=== PATIENT | male | born 1950 | race Caucasian/White ===

== ENCOUNTER → 2019-01-26 08:27 | Outpatient (CLI) | payer MEDICARE, OTHER, SELFPAY ==
[2019-01-26 09:50] LABS: Influenza A and B by PCR Rapid Negative (Negative)
== END ==
PROVIDERS: PCP Physician Assistant; Visit Provider Physician Assistant
DX: R68.89 Other general symptoms and signs (principal)
CPT/HCPCS: 87400

== ENCOUNTER → 2019-12-16 08:53 | Outpatient (CLI) | payer MEDICARE, OTHER, SELFPAY ==
--- NOTE | 2019-12-16 | DI.CT.S_ITS ---
PROCEDURE: CT ABDOMEN PELVIS WO/W CON INDICATIONS: Gross hematuria TECHNIQUE: Optional 5 mm thick noncontrast images acquired from the diaphragm to the symphysis pubis. After the administration of intravenous contrast, 5 mm thick images acquired from the diaphragm to the symphysis pubis after a 10-minute delay. 2 mm thick coronal and sagittal reformats were then performed of the kidneys and ureters. For radiation dose reduction, the following was used: automated exposure control, adjustment of mA and/or kV according to patient size. COMPARISON: None. FINDINGS: Image quality: Excellent. Lung bases: Lung bases are clear. Heart size is normal. Urinary system: Both kidneys are normal in size, without hydronephrosis bilaterally, but there is a single collecting system calculus in each kidney measuring 2-3 mm, nonobstructive, without associated ureteral stone. No perinephric fat stranding. There is normal bilateral renal enhancement. Renal calyces appear normal in morphology when filled with contrast. Opacified portions of both ureters demonstrate normal caliber. Measuring 2-3 mm, no ureteral calculus is found. The bladder wall thickness is normal, although it is mildly irregular at the margins of the prostatic urethra, and the prostate itself is globally moderately enlarged, measuring up to 7.2 cm transverse and 7.1 cm AP with a craniocaudad dimension of the prostate up to 6.7 cm. No calcified bladder stones. Other solid organs: Liver is normal in size and enhancement. Gallbladder appears normal. Biliary system is non dilated. Pancreas enhances normally. Spleen is normal in size and enhancement. No adrenal nodules. Peritoneum and bowel: Bowel loops demonstrate normal wall thickness and caliber. No free fluid or air. Nodes and vessels: No retroperitoneal or mesenteric adenopathy by size criteria. Aorta and inferior vena cava are normal in size. Abdominal wall: No ventral hernias. Pelvis: No pathologic free pelvic fluid. No inguinal hernias or adenopathy. Bones: No suspicious bony lesions. No vertebral body compression fractures. IMPRESSION: 1. No definite urothelial or renal cortical mass is found. The median lobe of the prostate gland is mildly irregular along its margins, and cystoscopy may be warranted for more accurate assessment of that area as potential source of hematuria. 2. Each kidney contains a single non-obstructive calculus. 3. Generalized enlargement of the prostate gland measuring up to 7.2 x 7.1 x 6.7 cm. Dictated by: Ludwin Álvarez M.D. on 12/16/2019 at 13:49 Approved by: Ludwin Álvarez M.D. on 12/16/2019 at 13:55
[2019-12-16 09:50] LABS: BUN Creatinine Ratio 16.3 (6-22); Blood Urea Nitrogen 13 mg/dL (9-20); Calcium 9.8 mg/dL (8.4-10.2); Carbon Dioxide 29 mmol/L (22-32); Chloride 102 mmol/L (98-107); Estimated Glomerular Filt Rate > 60.0 mL/min (>60); Glucose 137 mg/dL (80-110); HEMOLYSIS < 15 (0-50); Sodium 138 mmol/L (137-145)
== END ==
PROVIDERS: PCP Internal Medicine; Referring Provider Specialist; Visit Provider Specialist
DX: R31.0 Gross hematuria (principal); N20.0 Calculus of kidney; N40.1 Benign prostatic hyperplasia with lower urinary tract symptoms
CPT/HCPCS: 36415; 74178; 80048; 84153; Q9967

== ENCOUNTER 2020-03-19 16:48 | Emergency (ER) | payer MEDICARE, OTHER, SELFPAY ==
[2020-03-19 16:51] VITALS: BP 155/79; PULSE 90; RESP 16; TEMP 36.4; O2SAT 98
--- NOTE | 2020-03-19 17:50 | ED_ITS ---
HPI - Dental/Oral General Chief complaint: Dental/Oral Stated complaint: states abcess tooth Time Seen by Provider: 03/19/20 17:07 Source: patient Mode of arrival: Ambulatory Limitations: no limitations History of Present Illness HPI Narrative: CC: Toothache, dental abscess, facial swelling HPI: The patient is a 70-year-old male who states that he has had tremendously bad teeth. He was planning to see a dentist to have his teeth removed and to get dentures when buccal with crisis developed. A dentist will not see him at the present time. He has developed pain and discomfort in his left upper maxillary ridge. He has fractured teeth that are eroded right to the gingival margin with teeth 9., 10., 12., and 13. He has developed swelling of his left face . He denies any fever chills or sweats any fall or injury. He admits to smoking cigarettes and drinking alcohol but does not use any drugs including marijuana. He denies a history of hypertension but states that he believes he has borderline. He has had no diabetes mellitus stroke congestive heart failure myocardial infarction or COPD. Related Data Previous Rx's Medication Instructions Recorded amoxicillin-pot clavulanate 1 tab PO BID #20 tab 03/19/20 [Augmentin] ibuprofen 600 mg PO Q6H PRN #20 tab 03/19/20 prednisone 40 mg PO DAILY #10 tab 03/19/20 tramadol 50 mg PO Q8H PRN #12 tab 03/19/20 Allergies Allergy/AdvReac Type Severity Reaction Status Date / Time No Known Drug Allergies Allergy Verified 03/19/20 17:01 Review of Systems Review of Systems Narrative: REVIEW OF SYSTEMS: CONSTITUTIONAL: He denies any fever chills or sweats. NEUROLOGICAL: He denies any headache numbness tingling paresthesias anesthesia is paresis or paralysis. EENT: He complains of right-sided dental pain as previously described with diffuse facial swelling. He has had no difficulty in swallowing no sinus congestion or sore throat. CARDIO-PULMONARY: He denies any chest pain cough shortness of breath palpitations dizziness. HEMOTOLOGICAL: He denies any bruising or bleeding abnormalities. GASTROINTESTINAL: He denies any abdominal pain nausea vomiting diarrhea. GENITAL URINARY: He has prostatitis with intermittent difficulty in urinating. Patient History Social History Smoking Status: Current every day smoker Smoking Status: Current every day smoker alcohol intake frequency: 0-2 drinks per day Substance Use Type: does not use Exam Narrative Exam Narrative: PHYSICAL EXAM: CONSTITUTIONAL: Awake, Alert, Oriented, Coherent, Cooperative in NAD. Does not appear toxic or ill. HEAD: AT/NC EENT: PERRL, FROM of eyes, no discharge, no nystagmus MOUTH:Oral mucosa is moist and pink, posterior pharynx is without erythema or e xudate. The patient's teeth on the left upper jaw are of eroded wit sockets in 9., 10, 12, and 13. The maxillary ridge is diffusely tender in this area without any fluctuance. The soft tissue face over the maxilla and in this area is diffusely swollen mildly without warmth or erythema. NECK: Supple, no obvious JVD, Trachea is midline without stridor, no palpable LN. SPINE: Palpationof the cervical, Thoracic, Lumbar or Sacral spine reveals no gross deformity or tenderness. No CVA tenderness. THORAX: No chest wall tenderness. LUNGS: Clear, symmetrical breath sounds without respiratory distress. HEART: Normal heart tones, regular rhythm and rate without murmur. ABDOMEN: Soft, non-tender, without guarding, rebound, rigidity or palpable mass. NEURO: Awake, alert, oriented, conversive, cranial nerves II-XII are symmetrical , moves all 4 extremities and is ambulatory. Initial Vital Signs Initial Vital Signs: Vital Signs Temperature 97.6 F 03/19/20 16:51 Pulse Rate 90 03/19/20 16:51 Respiratory Rate 16 03/19/20 16:51 Blood Pressure 155/79 H 03/19/20 16:51 Pulse Oximetry 98 03/19/20 16:51 Course Orders Ordered: Discontinued Medications Ampicillin Sodium/Sulbactam (Sodium 3 gm/ Sodium Chloride) 100 mls @ 100 mls/hr IV NOW ONE Stop: 03/19/20 17:51 Last Infusion: 03/19/20 19:43 Dose: 0 mls/hr Documented by: Admin: 03/19/20 18:21 Dose: 100 mls/hr Documented by: ETTA Ketorolac Tromethamine (Toradol) 30 mg IV NOW ONE Stop: 03/19/20 17:51 Last Admin: 03/19/20 18:19 Dose: 30 mg Documented by: ETTA Methylprednisolone (Solu-Medrol 125 Mg Vial) 125 mg IV NOW ONE Stop: 03/19/20 17:51 Last Admin: 03/19/20 18:18 Dose: 125 mg Documented by: ETTA Vital Signs Vital signs: Vital Signs - 8 hr 03/19/20 16:51 Temperature 97.6 F Pulse Rate 90 Respiratory Rate 16 Blood Pressure 155/79 H Pulse Oximetry 98 Discharge Plan Departure Patient Disposition: Home Clinical Impression: Toothache, Dental caries, Dental abscess, Facial cellulitis Discharge Date/Time: 03/19/20 19:50 Instructions: DI for Cellulitis -- Adult, Tooth Abscess, DI for Dental Pain Activity Restrictions/Additional Instructions: 1. You have multiple fractured carious teeth with diffuse facial swelling facial pain secondary to a facial cellulitis. 2. Take the antibiotic as prescribed Augmentin 875 twice a day until gone. 3. Take the prednisone 40 mg.as prescribed 4. Ibuprofen 600 mg every 6 hours for pain and discomfort. 5. As a rescue medication take tramadol 50 mg every 8 hours as needed for severe pain. 6. If you develop progressive swelling of your face fever abnormal behavior you need to return to the emergency department for re-evaluation. 7. Follow-up with Dr. Cabrales the oral maxillary surgeon. Prescriptions: New amoxicillin-pot clavulanate [Augmentin] 875-125 mg tablet 1 tab PO BID Qty: 20 RF: 0 ibuprofen 600 mg tablet 600 mg PO Q6H PRN (Reason: pain) Qty: 20 RF: 1 prednisone 20 mg tablet 40 mg PO DAILY Qty: 10 RF: 0 tramadol 50 mg tablet 50 mg PO Q8H PRN (Reason: pain) Qty: 12 RF: 0 Referrals: Ulises Cabrales DMD [Physician] - Cain Joyner MD [Primary Care Provider] -
[2020-03-19] MEDS: methylPREDNISolone 125 MG/2 ML VIAL IV (18:18)
[2020-03-19] MEDS: KETOROLAC 60 MG/2 ML VIAL 30 MG IV (18:19)
[2020-03-19] MEDS: AMPICILLIN/SULBACTAM 3 GM 3 GM in SODIUM CHLORIDE 0.9% 100 ML IV (18:21)
[2020-03-19 19:48] VITALS: BP 148/88; PULSE 78; RESP 14; O2SAT 99
== END 2020-03-19 19:50 | disposition home or self-care (01) ==
PROVIDERS: Emergency Provider Emergency Medicine; PCP Internal Medicine
DX: K04.7 Periapical abscess without sinus (principal); L03.211 Cellulitis of face; K02.9 Dental caries, unspecified
CPT/HCPCS: 36415; 96365; 96375; 99284; J0295; J1885; J2930

== ENCOUNTER → 2020-04-02 07:43 | Outpatient (CLI) | payer MEDICARE, OTHER, SELFPAY ==
[2020-04-02 09:46] LABS: Prostate Specific Antigen 38.9 ng/mL (0.10-4.00)
== END ==
PROVIDERS: PCP Internal Medicine; Referring Provider Specialist; Visit Provider Specialist
DX: N40.1 Benign prostatic hyperplasia with lower urinary tract symptoms (principal)
CPT/HCPCS: 36415; 84153

== ENCOUNTER → 2020-04-13 08:07 | Outpatient (CLI) | payer MEDICARE, OTHER, SELFPAY ==
--- NOTE | 2020-04-13 | DI.MRI.S_ITS ---
PROCEDURE: MR PELIS WO/W CON INDICATIONS: Elevated prostate specific antigen [PSA] TECHNIQUE: Coronal HASTE, axial T1 FSE with fat saturation, 3-plane nonbreath-hold T2 FSE. After the administration of contrast, dynamic axial, delayed axial and coronal VIBE or 2-D FLASH with fat saturation through the pelvis. Optional diffusion weighted imaging and ADC may be performed. COMPARISON: [facility], CT, CT ABDOMEN PELVIS WO/W CON, 12/16/2019, 9:54. FINDINGS: Image quality: Diffusion weighted and dynamic contrast enhanced images are diagnostic. Prostate: Gland size is 6.9 x 6.6 x 6.3 cm; ellipsoid gland volume is 149 mL. Marked prostatomegaly. Mild curvilinear intrinsic T1 hyperintensity in the mid gland transitional zone midline and left apex transitional zone which could be due to prior hemorrhage. Numerous BPH nodules. Lesion size(s): Lesion 1: 0.8 cm Lesion location(s) (sector): Lesion 1: Right base/mid peripheral zone/central zone, (02/07). Lesion description: Lesion 1: Round. T2 weighted imaging (T2WI) morphology score: Lesion 1: Heterogeneous T2 hypointensity Diffusion weighted imaging (DWI) morphology score: Lesion 1: Heterogeneous ADC hypointensity without definite corresponding at DWI hyperintensity. Dynamic contrast enhancement (DCE): Lesion 1: Absent. Lesion PI-RADS score: Lesion 1: PI-RADS 3. -Note: There is similar-appearing heterogeneous ADC hypointensity and T2 hyperintensity in the left base central zone/peripheral zone which is less prominent. Genitourinary system: Bladder wall thickness is normal. Distal ureters are non distended. Bowel and peritoneum: No pathologic free pelvic fluid. Inferior colon and small bowel loops are normal in caliber. Diverticulosis. Nodes and vessels: No pelvic or inguinal adenopathy by size criteria. Iliac vessels are normal in caliber. Soft tissues: No inguinal hernias. Bones: Marrow demonstrates normal overall signal, without lesions to suggest metastases. IMPRESSION: 1. Marked prostatomegaly, estimated volume of 149 cc. 2. Intrinsic T1 hyperintensity may be due to prior hemorrhage. 3. Right base/mid gland peripheral zone/central zone lesion measuring a 0.8 cm. PI-RADS 3. -This may represent a BPH nodule given its imaging appearance and similar although was prominent signal abnormality on the left. 4. No PI-RADS 4 or 5 lesion for targeted biopsy. No suspicious adenopathy. Dictated by: Pavel Story M.D. on 04/13/2020 at 9:57 Approved by: Pavel Story M.D. on 04/13/2020 at 10:24
== END ==
PROVIDERS: PCP Internal Medicine; Referring Provider Specialist; Visit Provider Specialist
DX: R97.20 Elevated prostate specific antigen [PSA] (principal); N40.0 Benign prostatic hyperplasia without lower urinary tract symptoms
CPT/HCPCS: 72197; A9579

== ENCOUNTER 2025-04-02 18:15 | Emergency (ER) | payer MEDICARE, OTHER, SELFPAY ==
[2025-04-02 18:40] VITALS: BP 145/65; PULSE 110; RESP 20; TEMP 36.8; O2SAT 96; BMI 28.6
[2025-04-02 19:18] LABS: Add Manual Diff / Slide Review NO; Basophils Absolute Auto 100 /uL (0-100); Basophils Percent Auto 0.9 % (0-2); Eosinophils Absolute Auto 0 /uL (0-450); Hematocrit 33.5 % (41-53); Hemoglobin 11.2 g/dL (13.5-17.5); Lymphocytes Absolute Auto 1400 /uL (1100-4500); Lymphocytes Percent Auto 12.3 % (25-40); Mean Corpuscular HGB Conc 33.4 % (30-36); Mean Corpuscular Hemoglobin 31.6 PG (26-34); Mean Corpuscular Volume 94.6 fL (80-100); Monocytes Absolute Auto 1200 /uL (0-900); Monocytes Percent Auto 10.3 % (3-14); Neutrophils Absolute Auto 8800 /uL (1500-7000); Neutrophils Percent Auto 76.5 % (50-75); Platelet Count 127 X10^3/uL (150-400); Red Blood Cell Count 3.54 X10^6/uL (4.5-5.9); Red Cell Distribution Width 15.5 % (11.6-14.8); White Blood Cell Count 11.5 X10^3/uL (4.5-11.0)
[2025-04-02 19:25] LABS: Prothrombin Time 22.5 SECONDS (9.4-12.5)
[2025-04-02 19:27] LABS: PTT Partial Thromboplastin Tim 41 SECONDS (25.1-36.5)
[2025-04-02 19:28] LABS: Alanine Aminotransferase 37 IU/L (<50); Albumin 3.7 g/dL (3.5-5.0); Alkaline Phosphatase 142 U/L (38-126); Aspartate Aminotransferase 118 IU/L (17-59); BUN Creatinine Ratio 36.7 (6-22); Bilirubin Total 2.4 mg/dL (0.2-1.3); Blood Urea Nitrogen 29 mg/dL (9-20); Calcium 9.4 mg/dL (8.4-10.2); Carbon Dioxide 21 mmol/L (22-32); Chloride 104 mmol/L (98-107); Estimated Glomerular Filt Rate > 60 mL/min (>60); Globulin 3.8 g/dL (1.7-4.1); Glucose 155 mg/dL (70-99); HEMOLYSIS < 15 (0-50); Potassium 4.3 mmol/L (3.4-5.1); Sodium 138 mmol/L (137-145); Total Protein 7.5 g/dL (6.3-8.2)
[2025-04-02 21:43] VITALS: BP 140/64; PULSE 107; RESP 16; O2SAT 96
--- NOTE | 2025-04-02 21:57 | DI.CT.S_ITS ---
PROCEDURE: CT ANGIO ABDOMEN PELVIS INDICATIONS: GI bleed protocol TECHNIQUE: After the administration of intravenous contrast, 2.5 mm sections acquired from the diaphragm to the iliac crests. 10 mm maximum intensity projection (MIP) coronal and sagittal reformats were then performed. For radiation dose reduction, the following was used: automated exposure control. COMPARISON: [facility], CT, CT ABDOMEN PELVIS WO/W CON, 12/16/2019, 9:54. FINDINGS: Image quality: Diagnostic Lower chest: Mild lower lung atelectasis. Periesophageal varices are seen. Normal heart size. Liver: Severe steatosis irregular liver contour. Possible hypervascular lesion in segment 4 measuring 1.3 cm versus focal fatty sparing. Heterogeneous perfusion is seen in other parts of the liver. Gallbladder and biliary system: Calcification adjacent to the gallbladder fundus again seen. No biliary ductal dilation. Pancreas: No ductal dilation Spleen: Nonenlarged Adrenals: No discrete nodules Kidneys: There are punctate bilateral nonobstructing calculi. Left upper pole renal cyst. No hydronephrosis. Vessels and lymph nodes: Main portal vein is patent. Atherosclerotic calcifications. No abdominal aortic aneurysm. The major mesenteric vessels appear patent. Mild upper abdominal varices. Recanalized paraumbilical vein Bowel and peritoneum: Moderate ascites. Colonic diverticula. No evidence arterial extravasation is seen. Scattered wall thickening, particularly of the proximal colon. Wall thickening also seen in the rectum and small bowel. Body wall: Unremarkable Pelvis: Enlarged heterogeneous prostate again seen. This is not well assessed on CT. This could be further evaluated with MRI if necessary. Bladder is under distended Bones: There are degenerative osseous changes. IMPRESSION: Cirrhosis and sequela of portal hypertension. 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 No brisk arterial bleeding is present on CT. Consider possibility however of variceal bleeding given signs of portal hypertension. Colonic diverticula are also seen. Consider upper and lower endoscopy correlation. Scattered bowel wall thickening, especially in the proximal colon, and rectum. This is likely enterocolitis versus congestive enteropathy and colopathy. Moderate ascites. Severe hepatic steatosis. Possible hypervascular lesion versus focal fatty sparing in segment 4. Liver MRI is suggested non urgently to further evaluate. Other findings above. Dictated by: Umer Orozco M.D. on 04/02/2025 at 22:28 Approved by: Umer Orozco M.D. on 04/02/2025 at 22:37
[2025-04-02 23:33] LABS: Hematocrit 33.1 % (41-53); Hemoglobin 11.1 g/dL (13.5-17.5)
[2025-04-02 23:54] VITALS: BP 160/68; PULSE 111; O2SAT 97
[2025-04-03] VITALS (17 sets, daily range): BP systolic 122–161; BP diastolic 59–82; PULSE 104–114; RESP 15–44; TEMP 37–37.1; O2SAT 92–97
--- NOTE | 2025-04-03 00:18 | ED.GIBLEED ---
HPI - GI Bleed General Chief complaint: GI Bleed Stated complaint: stoamch pain Time Seen by Provider: 04/02/25 21:57 Source: patient Mode of arrival: Ambulatory History of Present Illness HPI Narrative: 75-year-old male with history of alcohol abuse, last drink 2 days ago, has had 2 days duration of black stools. Some nausea without emesis. No bright red blood per rectum, no mucoid stools. Patient has not recently been on the antibiotics. He denies painful or frequent urination. Denies chest pain or shortness of breath cough. Related Data Previous Rx's ?Medication ?Instructions ?Recorded finasteride 5 mg tablet 5 mg PO DAILY #90 tabs 05/05/20 Allergies Allergy/AdvReac Type Severity Reaction Status Date / Time No Known Drug Allergies Allergy Verified 04/02/25 18:47 Patient History Medical History (Updated 04/03/25 @ 04:02 by Wu Reza MD) BPH w urinary obs/LUTS Elevated PSA Social History Smoking Status: Current every day smoker Smoking Status: Current every day smoker alcohol intake frequency: 0-2 drinks per day Alcohol type: hard liquor Exam Narrative Exam Narrative: GENERAL:Well-developed patient, in mild distress. HEAD: Atraumatic. Normocephalic. EYES: Pupils equal round and reactive. Extraocular motions intact. No scleral icterus. No injection or drainage. ENT: Nose without bleeding, purulent drainage. Throat without erythema, tonsillar hypertrophy or exudate. Airway patent. NECK: Trachea midline. Non tender CARDIOVASCULAR: Regular rate and rhythm without murmurs, gallops, or rubs. RESPIRATORY: Clear to auscultation. Breath sounds equal bilaterally. No wheezes, rales, or rhonchi. GASTROINTESTINAL: Protuberant abdomen, not particularly tender, likely ascites, not tense. EXTREMITIES: No edema or joint tenderness. BACK: Nontender without deformity or crepitance. No flank tenderness. NEURO: AOx3. Motor functions grossly nonfocal. SKIN: No rash or erythema of visible areas Initial Vital Signs Initial Vital Signs: Vital Signs Temperature 98.2 F 04/02/25 18:40 Pulse Rate 110 H 04/02/25 18:40 Respiratory Rate 20 04/02/25 18:40 Blood Pressure 145/65 H 04/02/25 18:40 Pulse Oximetry 96 04/02/25 18:40 Oxygen Delivery Method Room Air 04/02/25 18:40 Course Orders Ordered: ED Orders 04/03/25 06:46 Hemoglobin and Hematocrit Stat Discontinued Medications Diazepam (Diazepam 10 Mg/2 Ml Syringe) 5 mg IV NOW ONE Stop: 04/03/25 01:50 Last Admin: 04/03/25 03:49 Dose: 5 mg Documented By: RUSSELL Sodium Chloride (Normal Saline 0.9%) 1,000 mls @ 1,000 mls/hr IV BOLUS ONE Stop: 04/03/25 01:15 Last Infusion: 04/03/25 02:28 Dose: Infused Documented By: Admin: 04/03/25 00:56 Dose: 1,000 mls/hr Documented By: RUSSELL Octreotide Acetate 500 mcg/ (Sodium Chloride) 101 mls @ 10.1 mls/hr IV CONT ROSAURA; Protocol Last Admin: 04/03/25 01:02 Dose: 50 mcg/hr, 10.1 mls/hr Documented By: RUSSELL Ceftriaxone Sodium 1,000 mg/ (Sodium Chloride) 100 mls @ 200 mls/hr IV NOW ONE Stop: 04/03/25 01:10 Last Infusion: 04/03/25 02:28 Dose: Infused Documented By: Admin: 04/03/25 01:38 Dose: 200 mls/hr Documented By: RUSSELL Thiamine HCl 100 mg/ Sodium (Chloride) 101 mls @ 404 mls/hr IV NOW ONE Stop: 04/03/25 01:50 Last Infusion: 04/03/25 04:21 Dose: Infused Documented By: Admin: 04/03/25 02:36 Dose: 404 mls/hr Documented By: RUSSELL Sodium Chloride (Normal Saline 0.9%) 1,000 mls @ 1,000 mls/hr IV BOLUS ONE Stop: 04/03/25 02:48 Last Infusion: 04/03/25 04:21 Dose: Infused Documented By: Admin: 04/03/25 02:39 Dose: 1,000 mls/hr Documented By: RUSSELL Octreotide Acetate (Octreotide 100 Mcg/Ml Vial) 50 mcg IV NOW ONE Stop: 04/03/25 00:17 Last Admin: 04/03/25 01:00 Dose: 50 mcg Documented By: RUSSELL Ondansetron HCl (Ondansetron 4 Mg/2 Ml Inj) 4 mg IV NOW PRN PRN Reason: Nausea And Vomiting Ondansetron HCl (Ondansetron 4 Mg Odt) 4 mg PO NOW PRN PRN Reason: Nausea And Vomiting Pantoprazole Sodium (Pantoprazole 40 Mg Vial) 80 mg IV NOW ONE Stop: 04/03/25 00:17 Last Admin: 04/03/25 00:58 Dose: 80 mg Documented By: LS Vital Signs Vital signs: Vital Signs - 8 hr 04/03/25 08:04 Temperature 98.6 F Pulse Rate 112 H Respiratory Rate 21 Blood Pressure 155/82 H Pulse Oximetry 95 Oxygen Delivery Method Room Air MDM - GI Bleed Lab Data Attestation: I reviewed the patient's lab results. Lab results narrative: White blood cell count 00299, hemoglobin 11.2, platelets 127,000. INR 2.0 elevated. Sodium 138, potassium 4.3, carbon dioxide 21, BUN 29 with creatinine 0.79. Glucose 155. Total bili 2.4, AST 118, ALT 37, alkaline phosphatase 142. Albumin 3.7. Blood type O positive noted. Antibody screen negative. Repeat hemoglobin 11.1. 04/03/25 06:46 04/02/25 19:05 Labs: Lab Results 04/02/25 04/02/25 04/03/25 Range/Units 19:05 23:25 04:00 WBC 11.5 H (4.5-11.0) X10^3/uL RBC 3.54 L (4.5-5.9) X10^6/uL Hgb 11.2 L 11.1 L (13.5-17.5) g/dL Hct 33.5 L 33.1 L (41-53) % MCV 94.6 (80-100) fL MCH 31.6 (26-34) PG MCHC 33.4 (30-36) % RDW 15.5 H (11.6-14.8) % Plt Count 127 L (150-400) X10^3/uL Neut % (Auto) 76.5 H (50-75) % Lymph % (Auto) 12.3 L (25-40) % [place] % (Auto) 10.3 (3-14) % Eos % (Auto) 0.0 L (2-4) % Baso % (Auto) 0.9 (0-2) % Neut # (Auto) 8800 H (3619-2954) /uL Lymph # (Auto) 1400 (3659-4086) /uL [place] # (Auto) 1200 H (0-900) /uL Eos # (Auto) 0 (0-450) /uL Baso # (Auto) 100 (0-100) /uL PT 22.5 H (9.4-12.5) SECONDS INR 2.0 H (0.9-1.3) APTT 41 H (25.1-36.5) SECONDS Sodium 138 (137-145) mmol/L Potassium 4.3 (3.4-5.1) mmol/L Chloride 104 (98-107) mmol/L Carbon Dioxide 21 L (22-32) mmol/L BUN 29 H (9-20) mg/dL Creatinine 0.79 (0.66-1.25) mg/dL Estimated GFR > 60 (>60) mL/min BUN/Creatinine Ratio 36.7 H (6-22) Glucose 155 H (70-99) mg/dL Lactate 4.1 H* (0.7-2.1) mmol/L Calcium 9.4 (8.4-10.2) mg/dL Total Bilirubin 2.4 H (0.2-1.3) mg/dL AST 118 H (17-59) IU/L ALT 37 (<50) IU/L Alkaline Phosphatase 142 H (38-126) U/L Total Protein 7.5 (6.3-8.2) g/dL Albumin 3.7 (3.5-5.0) g/dL Globulin 3.8 (1.7-4.1) g/dL Albumin/Globulin Ratio 1.0 (1.0-2.8) Urine RBC 10-30/hpf H (0-5/HPF) Urine WBC 1-5/hpf (0-5/HPF) Ur Squamous Epith Cells 0-1 /hpf (0-5/HPF) Urine Bacteria Occasional (0-1) (None) Urine Mucus 1+ H (Negative) Vol Urine Centrifuged 10ml (spun) Blood Type O Positive Antibody Screen Negative 04/03/25 Range/Units 06:46 WBC (4.5-11.0) X10^3/uL RBC (4.5-5.9) X10^6/uL Hgb 10.1 L (13.5-17.5) g/dL Hct 29.9 L (41-53) % MCV (80-100) fL MCH (26-34) PG MCHC (30-36) % RDW (11.6-14.8) % Plt Count (150-400) X10^3/uL Neut % (Auto) (50-75) % Lymph % (Auto) (25-40) % [place] % (Auto) (3-14) % Eos % (Auto) (2-4) % Baso % (Auto) (0-2) % Neut # (Auto) (4487-4850) /uL Lymph # (Auto) (5427-7667) /uL [place] # (Auto) (0-900) /uL Eos # (Auto) (0-450) /uL Baso # (Auto) (0-100) /uL PT (9.4-12.5) SECONDS INR (0.9-1.3) APTT (25.1-36.5) SECONDS Sodium (137-145) mmol/L Potassium (3.4-5.1) mmol/L Chloride (98-107) mmol/L Carbon Dioxide (22-32) mmol/L BUN (9-20) mg/dL Creatinine (0.66-1.25) mg/dL Estimated GFR (>60) mL/min BUN/Creatinine Ratio (6-22) Glucose (70-99) mg/dL Lactate 2.4 H (0.7-2.1) mmol/L Calcium (8.4-10.2) mg/dL Total Bilirubin (0.2-1.3) mg/dL AST (17-59) IU/L ALT (<50) IU/L Alkaline Phosphatase (38-126) U/L Total Protein (6.3-8.2) g/dL Albumin (3.5-5.0) g/dL Globulin (1.7-4.1) g/dL Albumin/Globulin Ratio (1.0-2.8) Urine RBC (0-5/HPF) Urine WBC (0-5/HPF) Ur Squamous Epith Cells (0-5/HPF) Urine Bacteria (None) Urine Mucus (Negative) Vol Urine Centrifuged Blood Type Antibody Screen Urine Dip Bedside Urine Glucose 100 mg/dl Bedside Urine Bilirubin - Negative Bedside Urine Ketone - Negative Urine Specific [place] 1.010 Bedside Urine Occult Blood +++ Bedside Urine pH 6.0 Bedside Urine Protein +/- 15 Bedside Urine Urobilinogen +/- 1mg Bedside Urine Nitrite - Negative Bedside Urine Leukocytes +/- [address] angiogram abdomen and pelvis: Radiologist's Impression: [address] [address] [address] Scan Report Signed Patient: Selvin Brown MR#: [id number] : 1950 Acct:[id number] Age/Sex: 75 / M Date of Service: 04/02/25 Loc: ED Accession Number: [id number] Procedure: CT angio abdomen pelvis Ordering Provider: Wu Reza MD PROCEDURE: CT ANGIO ABDOMEN PELVIS INDICATIONS: GI bleed protocol TECHNIQUE: After the administration of intravenous contrast, 2.5 mm sections acquired from the diaphragm to the iliac crests. 10 mm maximum intensity projection (MIP) coronal and sagittal reformats were then performed. For radiation dose reduction, the following was used: automated exposure control. COMPARISON: [facility], CT, CT ABDOMEN PELVIS WO/W CON, 12/16/2019, 9:54. FINDINGS: Image quality: Diagnostic Lower chest: Mild lower lung atelectasis. Periesophageal varices are seen. Normal heart size. Liver: Severe steatosis irregular liver contour. Possible hypervascular lesion in segment 4 measuring 1.3 cm versus focal fatty sparing. Heterogeneous perfusion is seen in other parts of the liver. Gallbladder and biliary system: Calcification adjacent to the gallbladder fundus again seen. No biliary ductal dilation. Pancreas: No ductal dilation Spleen: Nonenlarged Adrenals: No discrete nodules Kidneys: There are punctate bilateral nonobstructing calculi. Left upper pole renal cyst. No hydronephrosis. Vessels and lymph nodes: Main portal vein is patent. Atherosclerotic calcifications. No abdominal aortic aneurysm. The major mesenteric vessels appear patent. Mild upper abdominal varices. Recanalized paraumbilical vein Bowel and peritoneum: Moderate ascites. Colonic diverticula. No evidence arterial extravasation is seen. Scattered wall thickening, particularly of the proximal colon. Wall thickening also seen in the rectum and small bowel. Body wall: Unremarkable Pelvis: Enlarged heterogeneous prostate again seen. This is not well assessed on CT. This could be further evaluated with MRI if necessary. Bladder is under distended Bones: There are degenerative osseous changes. IMPRESSION: Cirrhosis and sequela of portal hypertension. 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 No brisk arterial bleeding is present on CT. Consider possibility however of variceal bleeding given signs of portal hypertension. Colonic diverticula are also seen. Consider upper and lower endoscopy correlation. Scattered bowel wall thickening, especially in the proximal colon, and rectum. This is likely enterocolitis versus congestive enteropathy and colopathy. Moderate ascites. Severe hepatic steatosis. Possible hypervascular lesion versus focal fatty sparing in segment 4. Liver MRI is suggested non urgently to further evaluate. Other findings above. Dictated by: Umer Orozco M.D. on 04/02/2025 at 22:28 Approved by: Umer Orozco M.D. on 04/02/2025 at 22:37 MDM Narrative Medical decision making narrative: 75-year-old male with regular alcohol use, last drink 2 days ago, with 2 days duration of melanotic stools. CIWA score 4. Afebrile, sirs screen negative. Protuberant abdomen likely ascites, not particularly tender. No respiratory distress. IV Protonix 80 mg bolus, IV Octreotide 50 mcg bolus with 50 microgram/hour infusion. IV Zofran. Blood cultures requested. Labs pending. Labs studies: White blood cell count 88055, hemoglobin 11.2, platelets 127,000. INR 2.0 elevated. Sodium 138, potassium 4.3, carbon dioxide 21, BUN 29 with creatinine 0.79. Glucose 155. Total bili 2.4, AST 118, ALT 37, alkaline phosphatase 142. Albumin 3.7. UA negative. Blood type O positive noted. Antibody screen negative. Repeat hemoglobin 11.1. CT Angio abdomen and pelvis. IMPRESSION: Cirrhosis and sequela of portal hypertension. 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 No brisk arterial bleeding is present on CT. Consider possibility however of variceal bleeding given signs of portal hypertension.Colonic diverticula are also seen.Consider upper and lower endoscopy correlation. Scattered bowel wall thickening, especially in the proximal colon, and rectum. This is likely enterocolitis versus congestive enteropathy and colopathy. Moderate ascites.Severe hepatic steatosis. Possible hypervascular lesion versus focal fatty sparing in segment 4. Liver MRI is suggested non urgently to further evaluate.Other findings above. See radiology report. 0400, case discussed with gastroenterology Dr. Rosa who can consult, await call back from hospitalist service. Would not add FFP or Kcentra for now. Agrees with other treatments initiated. 0415, discussed with Tiana Martinez hospitalist who accepts patient for transfer. 0530, bed now available at [facility], EMS transport to be arranged. 0700, repeat H/H 10.1/29.9, slight decreased, likely reflecting IVF dilution, transport within the hour to [facility] arranged. Discharge Plan Departure Patient Disposition: [facility] Clinical Impression: Melanotic stools, Esophageal varices, Enterocolitis, Ascites, History of alcohol abuse Prescriptions: No Action finasteride 5 mg tablet 5 mg PO DAILY Qty: 90 3RF Referrals: Cain Joyner MD [Primary Care Provider, Internal Medicine]
[2025-04-03] MEDS: SODIUM CHLORIDE 0.9% 1,000 ML 1000 ML IV ×2 (00:56→02:39)
[2025-04-03] MEDS: PANTOPRAZOLE 40 MG VIAL 80 MG IV (00:58)
[2025-04-03] MEDS: OCTREOTIDE 100 MCG/ML VIAL 50 MCG IV (01:00)
[2025-04-03] MEDS: OCTREOTIDE 500 MCG in SODIUM CHLORIDE 0.9% 100 ML 10.1 MCG IV (01:02)
[2025-04-03] MEDS: cefTRIAXone 1,000 MG in SODIUM CHLORIDE 0.9% 100 ML 200 MG IV (01:38)
[2025-04-03] MEDS: THIAMINE 100 MG in SODIUM CHLORIDE 0.9% 100 ML 404 MG IV (02:36)
--- NOTE | 2025-04-03 03:23 | PC.NURSE ---
VALIDATION ENGINEER note: Attempting to find placement for patient to transfer. Called the following places with the following responses: [facility]: 220 spoke with Giana. Sent face sheet. No beds currently, but patient is on the waitlist [facility]: 223 left message [place]/English; 231 spoke with Meka. Pushed images and facesheet, Meka took information. [facility] Wilder:236 Spoke with Isabel. Pushed images and face sheet. She took information down, she faxed over a Teresa auris questionaire. We filled it out and faxed it back.
[2025-04-03] MEDS: diazePAM 10 MG/2 ML SYRINGE 5 MG IV (03:49)
--- NOTE | 2025-04-03 04:10 | PC.NURSE ---
Pt ambulatory to restroom with cane without difficulty. Recliner moved into patients room at this time for patient comfort. IV site cleaned and dressing changed. Warm blankets provided. Labs drawn and meds administered as ordered. Pt states he is more comfortable at this time. Pt remains connected to cardiac, resp, blood pressure, and pulse ox monitors with alarms on and audible. Call light within reach. No further needs or requests at this time.
[2025-04-03 04:17] LABS: Bacteria Urine Occasional (0-1); RBC Urine 10-30/HPF (0-5/HPF); Squamous Epithelial Cell Urine 0-1 /HPF (0-5/HPF); Urine Volume 10mL (spun); WBC Urine 1-5/HPF (0-5/HPF)
[2025-04-03 04:18] LABS: Mucus Urine 1+ (Negative)
[2025-04-03 04:19] LABS: Lactate (Lactic Acid) 4.1 mmol/L (0.7-2.1)
[2025-04-03 05:39] LABS: Reflexed Lactate in 2 Hours Y
[2025-04-03 06:55] LABS: Hematocrit 29.9 % (41-53); Hemoglobin 10.1 g/dL (13.5-17.5)
[2025-04-03 07:09] LABS: Lactate 2HR (Lactic Acid Rflx) 2.4 mmol/L (0.7-2.1)
== END 2025-04-03 08:12 | disposition short-term general hospital (02) ==
PROVIDERS: Emergency Provider Emergency Medicine; PCP Internal Medicine
DX: K92.1 Melena (principal); I85.00 Esophageal varices without bleeding; K52.9 Noninfective gastroenteritis and colitis, unspecified; F10.10 Alcohol abuse, uncomplicated
CPT/HCPCS: 36415; 74174; 80053; 81003; 81015; 83605; 85014; 85018; 85025; 85610; 85730; 86850; 86900; 86901; 87040; 87086; 96365; 96366; 96368; 96375; 99284; J0696; J2354; J2470; J3360; Q9967

== ENCOUNTER → 2025-05-28 08:03 | Outpatient (CLI) | payer MEDICARE, OTHER, SELFPAY ==
[2025-05-28 08:54] LABS: Add Manual Diff / Slide Review NO; Hematocrit 31.9 % (41-53); Hemoglobin 10.7 g/dL (13.5-17.5); Lymphocytes Absolute Auto 3100 /uL (1100-4500); Mean Corpuscular HGB Conc 33.7 % (30-36); Mean Corpuscular Hemoglobin 30.0 PG (26-34); Mean Corpuscular Volume 88.9 fL (80-100); Platelet Count 140 X10^3/uL (150-400)
[2025-05-28 09:01] LABS: INR 2.1 (0.9-1.3); Prothrombin Time 23.8 SECONDS (9.4-12.5)
[2025-05-28 09:08] LABS: Hemoglobin A1C% w Est Avg Glu 5.4 % (4.0-6.0)
[2025-05-28 09:10] LABS: Alanine Aminotransferase 23 IU/L (<50); Albumin 3.3 g/dL (3.5-5.0); Albumin Globulin Ratio 0.8 (1.0-2.8); Alkaline Phosphatase 154 U/L (38-126); Blood Urea Nitrogen 6 mg/dL (9-20); Calcium 8.1 mg/dL (8.4-10.2); Carbon Dioxide 25 mmol/L (22-32); Chloride 104 mmol/L (98-107); Cholesterol 105 mg/dL (140-199); Estimated Glomerular Filt Rate > 60 mL/min (>60); Globulin 4.0 g/dL (1.7-4.1); Glucose 106 mg/dL (70-99); HDL Cholesterol 15 mg/dL (40-60); HEMOLYSIS < 15 (0-50); Potassium 3.4 mmol/L (3.4-5.1); Sodium 137 mmol/L (137-145); Total Protein 7.3 g/dL (6.3-8.2); Triglycerides 128 mg/dL (35-150)
== END ==
PROVIDERS: PCP Family Medicine; Referring Provider Family Medicine; Visit Provider Family Medicine
DX: R73.09 Other abnormal glucose (principal); K74.60 Unspecified cirrhosis of liver; F10.90 Alcohol use, unspecified, uncomplicated; Z76.89 Persons encountering health services in other specified circumstances; K76.6 Portal hypertension; R18.8 Other ascites; R63.0 Anorexia; N40.0 Benign prostatic hyperplasia without lower urinary tract symptoms
CPT/HCPCS: 36415; 80053; 80061; 82105; 83036; 85025; 85610

== ENCOUNTER → 2025-06-07 11:14 | Outpatient (CLI) | payer MEDICARE, OTHER, SELFPAY | PROVIDERS: PCP Family Medicine; Visit Provider Urology | DX: N40.1 Benign prostatic hyperplasia with lower urinary tract symptoms (principal); N13.8 Other obstructive and reflux uropathy | CPT/HCPCS: 87077; 87086; 87186 ==

== ENCOUNTER → 2025-06-08 07:09 | Outpatient (CLI) | payer MEDICARE, OTHER, SELFPAY ==
[2025-06-08 09:25] LABS: Prostate Specific Antigen 111 ng/mL (0.10-4.00)
== END ==
PROVIDERS: PCP Family Medicine; Referring Provider Family Medicine; Visit Provider Urology
DX: R97.20 Elevated prostate specific antigen [PSA] (principal)
CPT/HCPCS: 36415; 84153